=== PATIENT | female | born 1945 | race Caucasian/White ===

== ENCOUNTER 2017-06-09 09:27 | Outpatient (CLI) | payer MEDICARE, BC | END 2017-06-09 09:28 | disposition home or self-care (01) | LOC: BICMAMMO 09:27 | PROVIDERS: ATTEND Internal Medicine | DX: Z12.31 Encounter for screening mammogram for malignant neoplasm of breast (principal) | CPT/HCPCS: 77063; 77067 ==

== ENCOUNTER 2017-09-16 16:05 | Outpatient (CLI) | payer MEDICARE, BC | END 2017-09-16 16:06 | disposition home or self-care (01) | LOC: BICRAD 16:05 | PROVIDERS: ATTEND Internal Medicine | DX: M79.643 Pain in unspecified hand (principal); M19.041 Primary osteoarthritis, right hand ==

== ENCOUNTER 2018-03-23 14:45 | Outpatient (CLI) | payer MEDICARE, BC ==
--- NOTE | 2018-03-23 16:55 | BD ---
DEXA BONE SCAN 03/23/18 HISTORY: Age related osteoporosis. DEXA bone scan is performed using hologic bone mineral density unit. Lumbar Spine: BMD (g/cm2) T-Score: Z-Score: L1 1.00 0.0 1.9 L2 1.08 0.5 2.6 L3 1.10 0.1 2.4 L4 1.03 -0.3 2.0 L1-L4 1.05 0.0 2.2 Findings compatible with normal bone mineral density. LEFT HIP: Femoral Neck: 0.58 -2.4 -0.6 Total Femur: 0.87 -0.6 1.0 Findings compatible with osteopenia. The patient has the following FRAX score: Ten year fracture risk is as follows: Major osteoporotic fracture risk of 13%. Hip fracture risk of 3.1%. Impression: Normal bone mineral density. No significant increased risk of osteoporotic fracture is seen. POS: JUAN JOSE
== END 2018-03-23 14:46 | disposition home or self-care (01) ==
LOC: BICMAMMO 14:45
PROVIDERS: ATTEND Internal Medicine
DX: M85.89 Other specified disorders of bone density and structure, multiple sites (principal)
CPT/HCPCS: 77080

== ENCOUNTER 2018-06-13 10:40 | Outpatient (CLI) | payer MEDICARE, BC | END 2018-06-13 10:41 | disposition home or self-care (01) | LOC: BICMAMMO 10:40 | PROVIDERS: ATTEND Internal Medicine | DX: Z12.31 Encounter for screening mammogram for malignant neoplasm of breast (principal); R92.1 Mammographic calcification found on diagnostic imaging of breast; Z80.3 Family history of malignant neoplasm of breast | CPT/HCPCS: 77063; 77067 ==

== ENCOUNTER 2021-07-29 10:56 | Outpatient (CLI) | payer MEDICARE, BC | END 2021-07-29 10:57 | disposition home or self-care (01) | LOC: BICMAMMO 10:56 | PROVIDERS: ATTEND Internal Medicine | DX: Z12.31 Encounter for screening mammogram for malignant neoplasm of breast (principal); Z80.3 Family history of malignant neoplasm of breast | CPT/HCPCS: 77063; 77067 ==

== ENCOUNTER 2022-08-14 14:12 | Outpatient (CLI) | payer MEDICARE, BC | END 2022-08-14 14:13 | disposition home or self-care (01) | LOC: BICMAMMO 14:12 | PROVIDERS: ATTEND Internal Medicine | DX: Z12.31 Encounter for screening mammogram for malignant neoplasm of breast (principal) | CPT/HCPCS: 77063; 77067 ==